=== PATIENT | female | born 1945 | race Caucasian/White ===

== ENCOUNTER 2017-12-15 12:06 | Emergency (ER) | payer MEDICARE, OTHER ==
[~2017-12-15] VITALS: Ht 154.9 cm; Wt 77.6 kg
[~2017-12-15 12:06] MED LIST: ASPIRIN EC81 MG PO; ASPIRIN81 M1 PO; BENTYL20 MG PO; BYSTOLIC10 MG PO; CEFTIN500 MG PO; DIFLUCAN100 MG PO; FUROSEMIDE40 MG PO; GABAPENTIN100 MG PO; GLIPIZIDE5 MG PO; JANUMET 50-5001 EACH PO; LANTUS; LISINOPRIL10 MG PO; MUPIROCIN TP; NIFEDIPINE ER30 M1 PO; PANTOPRAZOLE SO40 MG PO; QUINAPRIL HCL40 MG PO; SIMVASTATIN20 MG PO; SYMBICORT 16010.2 GM INH; TYLENOL # 31 EA PO; VENTOLIN HFA18 GM INH; Z.0.ACCUPRIL40 MG PO; Z.0.BYSTOLIC10 MG PO; Z.0.FUROSEMIDE40 MG PO; Z.0.GLIPIZIDE5 MG PO; Z.0.NORVASC5 MG PO; Z.0.SIMVASTATIN20 MG PO; [UNRECOGNIZED DRUG - OTHER]; [UNRECOGNIZED DRUG - REMARK]
[2017-12-15] MEDS ORDERED: CLONIDINE HCL 0.2 MG TAB PO ONE ×2 (12:30→13:00)
--- NOTE | 2017-12-15 13:15 | Diagnostic Imaging Report ---
EXAMINATION: FOOT RIGHT COMPLETE 12/15/2017 12:27 PM COMPARISON: None INDICATION: Right foot injury DISCUSSION: 3 views of the right foot Oblique, minimally displaced, fracture through the mid diaphysis of the fifth metatarsal. The anterior process of the calcaneus is not well visualized, possibly due to patient position. No other fractures identified. Hallux valgus deformity Joint spaces are maintained. Soft tissues are unremarkable IMPRESSION: Oblique, minimally displaced fracture through the mid diaphysis of the fifth metatarsal. The anterior process of the calcaneus is not well-visualized on the lateral view, likely due to patient position. If there is concern for calcaneal fracture, consider repeat lateral radiographs. No other fractures identified. Miguel Clay MD Signed by: Dr. Miguel Clay M.D. on 12/15/2017 1:12 PM
[2017-12-15 15:16] VITALS: BP 101/57
== END 2017-12-15 15:17 | disposition home or self-care (01) ==
LOC: ER 12:06
DX: M79.671 Pain in right foot (principal); S92.354A Nondisplaced fracture of fifth metatarsal bone, right foot, initial encounter for closed fracture; S50.11XA Contusion of right forearm, initial encounter; W22.09XA Striking against other stationary object, initial encounter; Y92.002 Bathroom of unspecified non-institutional (private) residence as the place of occurrence of the external cause; I10 Essential (primary) hypertension
CPT/HCPCS: 99283

== ENCOUNTER 2018-01-08 07:32 | Emergency (ER) | payer MEDICARE, OTHER ==
[~2018-01-08] VITALS: Ht 154.9 cm; Wt 77.6 kg
--- OUTSIDE RECORDS SUMMARY | 2018-01-08 07:35 | XMS REPORT ---
[facility] Address Unknown Phone Unavailable Care Team Providers Care Promotions Producer Name Role Phone LUPE TREVINO Unavailable Unavailable Problems This patient has no known problems. Allergies, Adverse Reactions, Alerts This patient has no known allergies or adverse reactions. Medications This patient has no known medications. Results Test Description Test Time Test Comments Text Results Atomic Results Result Comments FOOT RIGHT COMPLETE [place] [address] Patient Name: JOSE CHRISTIANSON MR #: [id number] : 1945 Age/Sex: 72/F Req #: [id number] Adm Physician: Ordered by: CHIDI WOLFF LOCAL SALES MANAGER Report #: [id number] Location: ER Room/Bed: Procedure: [id number] DX/FOOT RIGHT COMPLETE Exam Date: 12/15/17 Exam Time: 1250 REPORT STATUS: Signed EXAMINATION: FOOT RIGHT COMPLETE 12/15/2017 12:27 PM COMPARISON: None INDICATION: Right foot injury DISCUSSION: 3 views of the right foot Oblique , minimally displaced, fracture through the mid diaphysis of the fifth metatarsal. The anterior process of the calcaneus is not well visualized, possibly due to patient position. No other fractures identified. Hallux valgus deformity Joint spaces are maintained. Soft tissues are unremarkable IMPRESSION: Oblique, minimally displaced fracture through the mid diaphysis of the fifth metatarsal. The anterior process of the calcaneus is not well-visualized on the lateral view, likely due to patient position. If there is concern for calcaneal fracture, consider repeat lateral radiographs. No other fractures identified. Petrona Clay MD Signed by: Dr. Petrona Clay M.D. on 12/15/2017 1:12 PM Dictated By: PETRONA CLAY MD [id number] Transcribed By: PATY on 12/15/17 1312 COPY TO: CHIDI WOLFF NP
--- OUTSIDE RECORDS SUMMARY | 2018-01-08 07:36 | XMS REPORT | Continuity of Care Document ---
Author Author [facility] Organization [facility] Address [address] [place] [address] Phone Unavailable Care Team Providers Care Deliverer Food Name Role Phone WILFRID VILLANUEVA MD PCP Insurance Providers Guarantor Jose Bravo Address [address] [place] [address] Email NONE Payer [facility] Ppo Policy Number [id number] Subscriber's Name Jose Bravo Relationship 18 Self / Same As Patient Group Number [id number] Group Name RETIRED Effective Date 10 Payer Medicare A & B Policy Number [id number] Subscriber's Name Jose Bravo Relationship 18 Self / Same As Patient Group Number [id number] Group Name RETIRED Effective Date 09 Advance Directives Directive Response Recorded Date/Time Does the patient have an advance directive? No 03/21/15 5:56pm If yes, [facility]? No 03/21/15 5:56pm If not on file with [facility] will patient provide a copy? No 03/21/15 5:56pm Problems No problem information available. Medications Current Home Medications Medication Dose Units Route Directions Days Qty Instructions Start Date Acetaminophen/Codeine Phosphate (Tylenol # 3*) 1 Ea Tab 1 Tab Oral Every 4 Hours as needed for Pain 50 Amlodipine Besylate (Norvasc) 5 Mg Tablet 10 Mg Oral Twice A Day Aspirin (Aspirin Ec) 81 Mg Tablet.dr 81 Mg Oral Daily 30 Tab Cefuroxime Axetil (Ceftin) 500 Mg Tablet 500 Mg Oral Twice A Day 14 Dicyclomine Hcl (Bentyl) 20 Mg Tablet Oral Every 6 Hours Fluconazole (Diflucan) 100 Mg Tablet 100 Mg Oral Daily 7 Furosemide 40 Mg Tablet 40 Mg Oral Daily 30 Tab Gabapentin 100 Mg Capsule Oral Twice A Day Glipizide 5 Mg Tablet 5 Mg Oral Twice Daily Before Meals Lantus 10UAM/20UPM Lisinopril 10 Mg Tablet 40 Mg Oral Twice A Day 30 Tab Nebivolol Hcl (Bystolic) 10 Mg Tablet 10 Mg Oral Daily Pantoprazole Sodium (Protonix) 40 Mg Tablet.dr 40 Mg Oral Daily Quinapril Hcl 40 Mg Tablet 40 Mg Oral Twice A Day Simvastatin 20 Mg Tablet 20 Mg Oral Bedtime Sitagliptin Phos/Metformin Hcl (Janumet 50-500 Mg Tablet) 1 Each Tablet 50- 1000 Mg Oral Twice A Day Past Home Medications Medication Directions Ordered Status Analgram Prn , Discontinued Humulin R-Sliding , Discontinued Mupirocin 22 Gm Oint..gm., 22 Gm Topical as needed Discontinued Nifedipine (Nifedipine Er) 30 Mg Tab.er.24, 60 Mg Oral Daily Discontinued Social History Social History Problem Response Recorded Date/Time Onset Date Status Hx Psychiatric Problems No 03/21/2015 5:56pm Not Applicable Not Applicable Hx Eating Disorder No 03/21/2015 5:56pm Not Applicable Not Applicable Hx Substance Use Disorder No 03/21/2015 5:56pm Not Applicable Not Applicable Hx Depression No 03/21/2015 5:56pm Not Applicable Not Applicable Hx Alcohol Use No 03/21/2015 5:56pm Not Applicable Not Applicable Hx Substance Use Treatment No 03/21/2015 5:56pm Not Applicable Not Applicable Hx Physical Abuse No 03/21/2015 5:56pm Not Applicable Not Applicable Smoking Status Start Date Stop Date Never Smoker Hospital Discharge Instructions No hospital discharge instruction information available. Plan of Care Discharge Date 12/15/17 3:17pm Disposition HOME, SELF-CARE Condition at Discharge Stable Instructions/Education Provided Fractures - Metatarsal Prescriptions See Medication Section Referrals DOUG PHILLIPS DPM Order Date: Call for an appointment Address: [address] [place] [id number] Additional Instructions/Education Ortho: Keep your injured extremity elevated above your heart, use ice packs for 15 to 20 minutes every. Take Motrin 400mg to 600mg every 4-6 hours as needed for pain. Take the prescribed medication as directed for breakthrough pain. follow up with the Orthopedic referral physician listed, call next business day to schedule your follow-up appointment. Return to the ER for any shortness of breath, increased pain to injured extremity, discoloration of extremity, decreased circulation to the extremity or any new concerns. Functional Status No functional status information available. Allergies, Adverse Reactions, Alerts Allergen Type Severity Reaction Status Last Updated hydrocodone bit Allergy Mild ITCHING, NAUSEA/VOMITING Active 12/18/11 metoclopramide HCl Allergy Unknown Active 12/17/11 NSAIDS (Non-Steroidal Anti-Inflamma Allergy Mild Active 03/09/08 Acetaminophen Allergy Mild Active 03/09/08 Atropine Allergy Mild Active 03/09/08 Ibuprofen Allergy Severe HAD TO BE STIMULATED TO BREATH Active 12/17/11 Naproxen Allergy Severe "STOPS ME FROM BREATHING" Active 09/25/12 Loratadine Allergy Severe TACHYCARDIA Active 09/25/12 Clonidine Allergy Mild ANAPHYLACTIC REACTION Active 09/25/12 Vancomycin Allergy Severe RASH, ITCHING, SWELLING Active 12/17/11 Immunizations No immunization information available. Vital Signs Acute Vital Signs Vital Response Date/Time Pulse Pulse Rate (adult) 52 bpm (60 - 90) 12/15/2017 3:16pm Respiratory Rate 18 bpm (12 - 24) 12/15/2017 3:16pm Blood Pressure 101/57 mm Hg 12/15/2017 3:16pm Height 5 ft 1 in 12/15/2017 12:14pm Weight 171 lb 12/15/2017 12:14pm Body Mass Index 32.3 kg/m^2 12/15/2017 12:14pm Results No relevant diagnostic test, laboratory data and/or discharge summary information available. Procedures No procedure information available. Encounters Encounter Location Arrival/Admit Date Discharge/Depart Date Attending Provider Departed Emergency Room [facility] 12/15/17 12:06pm 12/15 3:17pm LUPE TREVINO MD
[2018-01-08] MEDS ORDERED: LIDOCAINE 5% PATCH TP STA (08:42)
[2018-01-08 08:50] VITALS: BP 183/89
== END 2018-01-08 09:45 | disposition home or self-care (01) ==
LOC: ER 07:32
DX: M79.671 Pain in right foot (principal); S62.211A Bennett's fracture, right hand, initial encounter for closed fracture; W18.39XA Other fall on same level, initial encounter
CPT/HCPCS: 99283

== ENCOUNTER 2018-03-31 08:04 | Emergency (ER) | payer MEDICARE, OTHER ==
[~2018-03-31] VITALS: Ht 154.9 cm; Wt 77.6 kg
--- OUTSIDE RECORDS SUMMARY | 2018-03-31 08:07 | XMS REPORT | Continuity of Care Document ---
Author Author [facility] Organization [facility] Address [address] [place] [address] Phone Unavailable Care Team Providers Care Blood Bank Specialist Name Role Phone WILFRID VILLANUEVA MD PCP Insurance Providers Guarantor Akua Bravo Shila Address [address] [phone] Email PT DECLINED Payer Medicare A & B Policy Number [id number] Subscriber's Name Akua Bravo Relationship 18 Self / Same As Patient Group Number [id number] Group Name RETIRED Effective Date 09 Payer r Ppo Policy Number [id number] Subscriber's Name Akua Bravo Relationship 18 Self / Same As Patient Group Number [id number] Group Name RETIRED Advance Directives Directive Response Recorded Date/Time Does the patient have an advance directive? No 03/21/15 5:56pm If yes, is advance directive on file with [facility]? No 03/21/15 5:56pm If not on file with [facility] will patient provide a copy? No 03/21/15 5:56pm Do you have a Directive to Physician? Yes 01/08/18 8:01am Do you have a Medical Power of Rental Clerk? Yes 01/08/18 8:01am Do you have an out of hospital Do Not Resuscitate Order? No 01/08/18 8:01am Do you have any special needs we should be aware of? No 01/08/18 8:01am Do you have a support person here with you today? No 01/08/18 8:01am Did patient receive Notice of Privacy Practices? Yes 01/08/18 8:01am Did patient receive patient rights and responsibilities? Yes 01/08/18 8:01am Problems No problem information available. Medications Current [...] No 03/21/2015 5:56pm Not Applicable Not Applicable Hospital Discharge Instructions No hospital discharge instruction information available. Plan of Care Discharge Date 01/08/18 9:45am Disposition HOME, SELF-CARE Condition at Discharge Stable Instructions/Education Provided Fractures - Metatarsal Prescriptions See Medication Section Referrals WILFRID VILLANUEVA MD Address: [address] [place] [address] [address] [place] [address] SONAM ANDERSON DPAyad Order Date: FELICE [address] [place] [address] Additional Instructions/Education Patient must wear the Ortho Boot 13/05 Patient needs to be compliant with prescribed Medications Tylenol can be used for additional pain control Patient MUST FOLLOW UP WITH PODIATRY this week Functional Status No functional status information available. Allergies, Adverse Reactions, Alerts Allergen Type Severity Reaction Status Last Updated hydrocodone bit Allergy Mild ITCHING, NAUSEA/VOMITING Active 01/08/18 metoclopramide HCl Allergy Unknown Active 01/08/18 NSAIDS (Non-Steroidal Anti-Inflamma Allergy Mild Active 03/09/08 Acetaminophen Allergy Mild Active 01/08/18 Atropine Allergy Mild Active 01/08/18 Ibuprofen Allergy Severe HAD TO BE STIMULATED TO BREATH Active 01/08/18 Naproxen Allergy Severe "STOPS ME FROM BREATHING" Active 01/08/18 Loratadine Allergy Severe TACHYCARDIA Active 01/08/18 Clonidine Allergy Mild ANAPHYLACTIC REACTION Active 01/08/18 Vancomycin Allergy Severe RASH, ITCHING, SWELLING Active 01/08/18 Immunizations No immunization information available. Vital Signs Acute Vital Signs Vital Response Date/Time Pulse Pulse Rate (adult) 51 bpm (60 - 90) 01/08/2018 8:50am Respiratory Rate 18 bpm (12 - 24) 01/08/2018 8:50am Blood Pressure 183/89 mm Hg 01/08/2018 8:50am Height 5 ft 1 in 01/08/2018 7:32am Weight 171 lb 01/08/2018 7:32am Body Mass Index 32.3 kg/m^2 01/08/2018 7:32am Results No relevant diagnostic test, laboratory data and/or discharge summary information available. Procedures Procedure Status Date Provider(s) EMERGENCY DEPT VISIT Completed 12/15/17 Encounters Encounter Location Arrival/Admit Date Discharge/Depart Date Attending Provider Departed Emergency Room [facility] 01/08/18 7:32am 9:45am ANUM HAGEN MD Departed Emergency Room [facility] 12/15/17 12:06pm 12/15 3:17pm LUPE TREVINO MD
[2018-03-31] MEDS ORDERED: LISINOPRIL 20 MG TAB PO ONE (09:00)
--- NOTE | 2018-03-31 09:03 | Diagnostic Imaging Report ---
PROCEDURE:HIP RIGHT 2-3 VW (+/- PELVIS) TECHNIQUE:AP pelvis; AP and frog-leg lateral right hip INDICATION:Right hip pain status post fall COMPARISON:None. FINDINGS: The right hip image regional skeleton are intact and in anatomic alignment. Mild degenerative changes at the acetabulum. Regional arteriosclerosis. Multiple phleboliths. Multilevel degenerative disc disease in the lumbar spine. CONCLUSION: No evidence of acute traumatic injury. Dictated by: Molina Bryant M.D. on 03/31/2018 at 9:06 Electronically approved by: Molina Bryant M.D. on 03/31/2018 at 9:06
--- NOTE | 2018-03-31 09:13 | Diagnostic Imaging Report ---
PROCEDURE:KNEE RIGHT THREE VIEWS TECHNIQUE:AP, lateral and oblique views right knee INDICATION:Right knee pain COMPARISON:None. FINDINGS: Right knee and image regional skeleton are intact alignment. Joint spaces are maintained. No significant sclerosis or osteophytosis. Multiple metallic foreign bodies are present in the medial, posterior soft tissues. Diffuse arteriosclerosis. CONCLUSION: Diffuse arteriosclerosis without acute abnormality or significant degenerative change. Multiple metallic foreign bodies. Dictated by: Molina Bryant M.D. on 03/31/2018 at 9:17 Electronically approved by: Molina Bryant M.D. on 03/31/2018 at 9:17
[2018-03-31] MEDS ORDERED: AMLODIPINE BESYLATE 10 MG TAB PO ONE (10:00)
[2018-03-31] MEDS ORDERED: TRAMADOL HCL 50 MG TAB PO ONE (10:15)
[2018-03-31] MEDS ORDERED: ACETAMINOPHEN 325 MG TAB PO ONE (10:30)
[2018-03-31] MEDS ORDERED: HYDRALAZINE HCL 20 MG/ML VIAL IV NR (11:00)
[2018-03-31 11:37] LABS: BASOPHILS % 0.4 % (0.0-1.0); EOSINOPHILS # (AUTO) 0.2 (0.0-0.4); EOSINOPHILS % 3.6 % (0.0-6.0); HEMATOCRIT 43.9 % (34.2-44.1); HEMOGLOBIN 14.7 g/dL (12.0-16.0); LYMPHOCYTES # (AUTO) 1.5 (1.0-3.2); LYMPHOCYTES % 33.4 % (18.0-39.1); MEAN CORPUSCULAR HEMOGLOBIN 31.1 pg (28-32); MEAN CORPUSCULAR HGB CONC 33.5 g/dL (31-35); MONOCYTES # (AUTO) 0.4 (0.2-0.8); MONOCYTES % 8.5 % (4.4-11.3); NEUTROPHILS # (AUTO) 2.4 (2.1-6.9); NEUTROPHILS % 53.9 % (38.7-80.0); PLATELET COUNT 129 x10e3/uL (140-360); RED BLOOD COUNT 4.72 x10e6/uL (3.6-5.1); RED CELL DISTRIBUTION WIDTH 12.5 % (11.7-14.4)
[2018-03-31 12:00] LABS: ALANINE AMINOTRANSFERASE 12 IU/L (0-55); ALBUMIN 3.7 g/dL (3.5-5.0); ALBUMIN/GLOBULIN RATIO 1.2 (0.8-2.0); ALKALINE PHOSPHATASE 69 IU/L (40-150); ANION GAP 11.4 mmol/L (8-16); BLOOD UREA NITROGEN 25 mg/dL (7-26); BUN/CREATININE RATIO 30 (6-25); CALCIUM 9.6 mg/dL (8.4-10.2); CARBON DIOXIDE 33 mmol/L (22-29); CHLORIDE 101 mmol/L (98-107); CREATINE KINASE 29 IU/L (29-168); CREATININE, SERUM 0.82 mg/dL (0.57-1.11); EST GLOMERULAR FILTRATION RATE > 60 ML/MIN (60-); GLUCOSE 193 mg/dL (74-118); POTASSIUM 4.4 mmol/L (3.5-5.1); SODIUM 141 mmol/L (136-145)
[2018-03-31 12:55] VITALS: BP 154/71
== END 2018-03-31 13:39 | disposition home or self-care (01) ==
LOC: ER 08:11
DX: S83.411A Sprain of medial collateral ligament of right knee, initial encounter (principal); M25.551 Pain in right hip; I10 Essential (primary) hypertension; E11.9 Type 2 diabetes mellitus without complications; Z79.4 Long term (current) use of insulin; Z88.1 Allergy status to other antibiotic agents; Z88.5 Allergy status to narcotic agent; Z88.8 Allergy status to other drugs, medicaments and biological substances
CPT/HCPCS: 36415; 73502; 73562; 80053; 82550; 82553; 82948; 84484; 85025; 93005; 99284; J0360

== ENCOUNTER 2021-03-17 09:22 | Emergency (ER) | payer OTHER, MEDICARE ==
[~2021-03-17] VITALS: Ht 154.9 cm; Wt 77.6 kg
[2021-03-17 12:30] VITALS: BP 156/66
== END 2021-03-17 12:32 ==
LOC: ER 09:32
DX: M54.9 Dorsalgia, unspecified (principal); W01.0XXA Fall on same level from slipping, tripping and stumbling without subsequent striking against object, initial encounter; Y92.129 Unspecified place in nursing home as the place of occurrence of the external cause
CPT/HCPCS: 70450; 99284

== ENCOUNTER 2021-05-27 09:18 | Emergency (ER) | payer MEDICARE, OTHER ==
[~2021-05-27] VITALS: Ht 154.9 cm; Wt 77.6 kg
== END 2021-05-27 12:51 ==
LOC: ER 10:00
DX: S00.03XA Contusion of scalp, initial encounter (principal); W06.XXXA Fall from bed, initial encounter; Y93.84 Activity, sleeping; Y92.128 Other place in nursing home as the place of occurrence of the external cause
CPT/HCPCS: 70450; 72125; 99284

== ENCOUNTER 2021-06-11 08:48 | Emergency (ER) | payer MEDICARE, OTHER ==
[~2021-06-11] VITALS: Ht 154.9 cm; Wt 77.6 kg
[2021-06-11 09:32] LABS: BASOPHILS % 0.5 % (0.0-1.0); EOSINOPHILS # (AUTO) 0.1 (0.0-0.4); EOSINOPHILS % 2.1 % (0.0-6.0); HEMATOCRIT 38.8 % (34.2-44.1); HEMOGLOBIN 12.1 g/dL (12.0-16.0); LYMPHOCYTES # (AUTO) 1.3 (1.0-3.2); LYMPHOCYTES % 20.2 % (18.0-39.1); MEAN CORPUSCULAR HEMOGLOBIN 28.7 pg (28-32); MEAN CORPUSCULAR HGB CONC 31.2 g/dL (31-35); MEAN CORPUSCULAR VOLUME 92.2 fL (81-99); MONOCYTES # (AUTO) 0.5 (0.2-0.8); MONOCYTES % 7.8 % (4.4-11.3); NEUTROPHILS # (AUTO) 4.5 (2.1-6.9); NEUTROPHILS % 69.1 % (38.7-80.0); PLATELET COUNT 136 x10e3/uL (140-360); RED BLOOD COUNT 4.21 x10e6/uL (3.6-5.1); RED CELL DISTRIBUTION WIDTH 13.5 % (11.7-14.4)
[2021-06-11 09:34] LABS: INR 0.97; PROTHROMBIN TIME 13.1 seconds (11.9-14.5)
[2021-06-11 09:35] LABS: PARTIAL THROMBOPLASTIN TIME 26.9 seconds (23.8-35.5)
[2021-06-11 09:45] LABS: ALBUMIN 3.1 g/dL (3.5-5.0); ANION GAP 14.2 mmol/L (8-16); CALCIUM 8.6 mg/dL (8.4-10.2); CREATININE, SERUM 0.75 mg/dL (0.57-1.11); POTASSIUM 4.2 mmol/L (3.5-5.1)
[2021-06-11 09:52] LABS: CREATINE KINASE MB 1.8 ng/mL (0-5.0)
[2021-06-11 12:23] VITALS: BP 139/110
== END 2021-06-11 12:25 ==
LOC: ER 09:14
DX: R07.89 Other chest pain (principal); E11.65 Type 2 diabetes mellitus with hyperglycemia; F03.90 Unspecified dementia, unspecified severity, without behavioral disturbance, psychotic disturbance, mood disturbance, and anxiety; I10 Essential (primary) hypertension; E78.5 Hyperlipidemia, unspecified; K21.9 Gastro-esophageal reflux disease without esophagitis; I34.1 Nonrheumatic mitral (valve) prolapse; F31.9 Bipolar disorder, unspecified
CPT/HCPCS: 36415; 71045; 80053; 82550; 82553; 84484; 85025; 85610; 85730; 93005; 99283